=== PATIENT | female | born 1960 | race Caucasian/White ===

== ENCOUNTER 2016-07-24 18:38 | Emergency (ER) | payer BC, MEDICARE ==
[2016-07-24 18:38] VITALS: O2SAT 100
[2016-07-24 18:51] VITALS: TEMP 97.3
[2016-07-24] MEDS ORDERED: HYDROMORPHONE HCL 2 MG/ML 1 ML SOL IM ONE (19:28)
[2016-07-24] MEDS ORDERED: PROMETHAZINE HYDROCHLORIDE 25 MG/ML SOL IM ONE (19:30)
[2016-07-24] MEDS ORDERED: HYDROMORPHONE HCL 2 MG/ML 1 ML SOL ONE (19:30)
[2016-07-24] MEDS ORDERED: PROMETHAZINE HYDROCHLORIDE 25 MG/ML SOL ONE (19:35)
[2016-07-24 19:54] VITALS: BP 128/72; PULSE 76; RESP 14
== END 2016-07-24 19:54 | disposition home or self-care (01) ==
LOC: ED 18:38
DX: R51 Headache (principal)
CPT/HCPCS: 99283 ×2; J1170; J2550; 96372

== ENCOUNTER 2016-09-16 21:22 | Emergency (ER) | payer BC, MEDICARE ==
[2016-09-16 21:35] VITALS: RESP 14; TEMP 97
[2016-09-16] MEDS ORDERED: APAP/HYDROCODONE 325/5 TAB PO ONE ×2 (21:39→22:11)
[2016-09-16] MEDS ORDERED: SUMATRIPTAN SUCCINATE 6 MG/0.5 ML SOL SC ONE ×2 (21:39→21:42)
[2016-09-16] MEDS ORDERED: ONDANSETRON 4 MG ODT BU ONE (21:39)
[2016-09-16] MEDS ORDERED: ONDANSETRON 4 MG ODT ONE (21:42)
[2016-09-16] MEDS ORDERED: APAP/HYDROCODONE 325/5 TAB ONE ×2 (21:42→22:13)
[2016-09-16 23:05] VITALS: O2SAT 97
[2016-09-16 23:06] VITALS: BP 129/79; PULSE 82
== END 2016-09-16 23:01 | disposition home or self-care (01) ==
LOC: ED 21:22
DX: G43.909 Migraine, unspecified, not intractable, without status migrainosus (principal)
CPT/HCPCS: 99284 ×2; J3030

== ENCOUNTER 2016-11-12 22:30 | Emergency (ER) | payer BC, MEDICARE ==
[2016-11-12 22:49] VITALS: RESP 16; TEMP 96.4
[2016-11-12] MEDS ORDERED: SUMATRIPTAN SUCCINATE 6 MG/0.5 ML SOL SC PRN (22:53)
[2016-11-12] MEDS ORDERED: PROCHLORPERAZINE MALEATE 5 MG TAB PO ONE (22:53)
[2016-11-12] MEDS ORDERED: SUMATRIPTAN SUCCINATE 6 MG/0.5 ML SOL SC ONE (23:05)
[2016-11-12] MEDS ORDERED: PROCHLORPERAZINE MALEATE 5 MG TAB ONE (23:06)
[2016-11-12] MEDS ORDERED: APAP/HYDROCODONE 325/5 TAB PO ONE (23:50)
[2016-11-13] MEDS ORDERED: APAP/HYDROCODONE 325/5 TAB ONE (00:31)
[2016-11-13 01:15] VITALS: BP 129/61; PULSE 74; O2SAT 96
== END 2016-11-13 00:39 | disposition home or self-care (01) ==
LOC: ED 22:30
DX: G43.001 Migraine without aura, not intractable, with status migrainosus (principal)
CPT/HCPCS: 99284 ×2; J3030; Q0164; 96372; 99283

== ENCOUNTER 2016-11-14 19:28 | Emergency (ER) | payer BC, MEDICARE ==
[2016-11-14] MEDS ORDERED: HYDROMORPHONE HCL 2 MG/ML SOL IM ONE (20:04)
[2016-11-14] MEDS ORDERED: HYDROMORPHONE HCL 2 MG/ML SOL ONE (20:11)
[2016-11-14 20:27] VITALS: RESP 12; TEMP 97.7
[2016-11-14 20:56] VITALS: BP 162/97; PULSE 94; O2SAT 98
== END 2016-11-14 20:50 | disposition home or self-care (01) ==
LOC: ED 19:28
DX: R51 Headache (principal)
CPT/HCPCS: 99283 ×2; J1170; 96372

== ENCOUNTER 2016-11-17 18:51 | Emergency (ER) | payer BC, MEDICARE ==
[2016-11-17] MEDS ORDERED: HYDROMORPHONE HCL 2 MG/ML SOL IM ONE ×2 (19:35→20:15)
[2016-11-17] MEDS ORDERED: PROMETHAZINE HYDROCHLORIDE 25 MG/ML SOL IM ONE (19:35)
[2016-11-17 19:39] VITALS: TEMP 98.7
[2016-11-17] MEDS ORDERED: HYDROMORPHONE 1 MG/ML SYRINGE ONE ×2 (19:41→20:18)
[2016-11-17] MEDS ORDERED: PROMETHAZINE HYDROCHLORIDE 25 MG/ML SOL ONE (19:41)
[2016-11-17 20:30] VITALS: BP 161/86; PULSE 80; RESP 14; O2SAT 95
== END 2016-11-17 20:42 | disposition home or self-care (01) ==
LOC: ED 18:51
DX: G43.001 Migraine without aura, not intractable, with status migrainosus (principal)
CPT/HCPCS: 99283 ×2; J1170 ×2; J2550; 96372

== ENCOUNTER 2016-12-10 15:51 | Emergency (ER) | payer BC, MEDICARE ==
[2016-12-10 16:17] VITALS: TEMP 96.6
[2016-12-10] MEDS ORDERED: PROCHLORPERAZINE EDISYLATE 5 MG/ML SOL IV ONE (16:24)
[2016-12-10] MEDS ORDERED: HYDROMORPHONE HCL 2 MG/ML SOL IV ONE (16:24)
[2016-12-10] MEDS ORDERED: HYDROMORPHONE HCL 2 MG/ML SOL IM ONE (16:26)
[2016-12-10] MEDS ORDERED: PROCHLORPERAZINE EDISYLATE 5 MG/ML SOL IM ONE (16:26)
[2016-12-10] MEDS ORDERED: HYDROMORPHONE HCL 2 MG/ML SOL ONE (16:28)
[2016-12-10] MEDS ORDERED: PROCHLORPERAZINE EDISYLATE 5 MG/ML SOL ONE (16:29)
[2016-12-10 16:55] VITALS: BP 134/84; PULSE 88; RESP 12; O2SAT 99
== END 2016-12-10 17:02 | disposition home or self-care (01) ==
LOC: ED 15:51
DX: G43.009 Migraine without aura, not intractable, without status migrainosus (principal)
CPT/HCPCS: 99283 ×2; J0780; J1170

== ENCOUNTER 2016-12-11 20:14 | Emergency (ER) | payer BC, MEDICARE ==
[2016-12-11 20:42] VITALS: TEMP 97.6
[2016-12-11] MEDS ORDERED: HYDROMORPHONE HCL 2 MG/ML SOL IV ONE (20:45)
[2016-12-11] MEDS ORDERED: PROCHLORPERAZINE EDISYLATE 5 MG/ML SOL IV ONE (20:46)
[2016-12-11] MEDS ORDERED: PROCHLORPERAZINE EDISYLATE 5 MG/ML SOL ONE (20:58)
[2016-12-11] MEDS ORDERED: HYDROMORPHONE HCL 2 MG/ML SOL ONE (20:58)
[2016-12-11 21:36] VITALS: BP 129/81; PULSE 83; RESP 14; O2SAT 91
== END 2016-12-11 21:52 | disposition home or self-care (01) ==
LOC: ED 20:14
DX: G43.009 Migraine without aura, not intractable, without status migrainosus (principal); M54.9 Dorsalgia, unspecified
CPT/HCPCS: 99283 ×2; J0780; J1170; 96374; 96375

== ENCOUNTER 2016-12-13 21:10 | Emergency (ER) | payer BC, MEDICARE ==
[2016-12-13 21:31] VITALS: RESP 16; TEMP 97.8; O2SAT 98
[2016-12-13] MEDS ORDERED: PROMETHAZINE HYDROCHLORIDE 25 MG/ML SOL IM ONE (21:50)
[2016-12-13] MEDS ORDERED: HYDROMORPHONE HCL 2 MG/ML SOL IM ONE (21:50)
[2016-12-13] MEDS ORDERED: PROMETHAZINE HYDROCHLORIDE 25 MG/ML SOL ONE (21:54)
[2016-12-13] MEDS ORDERED: HYDROMORPHONE HCL 2 MG/ML SOL ONE (21:54)
[2016-12-13 22:25] VITALS: BP 130/87; PULSE 88
== END 2016-12-13 22:24 | disposition home or self-care (01) ==
LOC: ED 21:10
DX: G43.009 Migraine without aura, not intractable, without status migrainosus (principal)
CPT/HCPCS: 99283 ×2; J1170; J2550; 96372

== ENCOUNTER 2016-12-16 18:43 | Emergency (ER) | payer BC, MEDICARE ==
[2016-12-16] MEDS ORDERED: HYDROMORPHONE HCL 2 MG/ML SOL IM ONE (19:09)
[2016-12-16] MEDS ORDERED: PROMETHAZINE HYDROCHLORIDE 25 MG/ML SOL IM ONE (19:09)
[2016-12-16] MEDS ORDERED: HYDROMORPHONE HCL 2 MG/ML SOL ONE (19:13)
[2016-12-16] MEDS ORDERED: PROMETHAZINE HYDROCHLORIDE 25 MG/ML SOL ONE (19:13)
[2016-12-16 19:27] VITALS: RESP 18; TEMP 97.1
[2016-12-17 02:26] VITALS: BP 129/65; PULSE 72; O2SAT 100
== END 2016-12-16 19:44 | disposition home or self-care (01) ==
LOC: ED 18:43
DX: G43.909 Migraine, unspecified, not intractable, without status migrainosus (principal)
CPT/HCPCS: 99283 ×2; J1170; J2550; 96372

== ENCOUNTER 2016-12-18 17:57 | Emergency (ER) | payer BC, MEDICARE ==
[2016-12-18 18:44] VITALS: BP 150/93; PULSE 87; RESP 18; TEMP 98.1; O2SAT 99
== END 2016-12-18 19:05 | disposition home or self-care (01) ==
LOC: ED 17:57
DX: M54.5 Low back pain (principal)
CPT/HCPCS: 99282

== ENCOUNTER 2016-12-23 17:16 | Emergency (ER) | payer BC, MEDICARE ==
[2016-12-23 17:38] VITALS: RESP 18; TEMP 97.2; O2SAT 100
[2016-12-23] MEDS ORDERED: DIPHENHYDRAMINE 50 MG/ML SOL IV ONE (17:43)
[2016-12-23] MEDS ORDERED: PROCHLORPERAZINE EDISYLATE 5 MG/ML SOL IV ONE (17:43)
[2016-12-23] MEDS ORDERED: SODIUM CHLORIDE 0.9% 1000ML 1,000 ML IV ONE (17:44)
[2016-12-23] MEDS ORDERED: PROCHLORPERAZINE EDISYLATE 5 MG/ML SOL ONE (17:57)
[2016-12-23] MEDS ORDERED: DIPHENHYDRAMINE 50 MG/ML SOL ONE (17:57)
[2016-12-23] MEDS ORDERED: SODIUM CHLORIDE 0.9% FLUSH 10 ML SOL IV PRN (18:20)
[2016-12-23] MEDS ORDERED: TRAMADOL HYDROCHLORIDE 50 MG TAB PO ONE (18:39)
[2016-12-23] MEDS ORDERED: TRAMADOL HYDROCHLORIDE 50 MG TAB ONE (19:11)
[2016-12-23 19:38] VITALS: BP 150/80; PULSE 75
== END 2016-12-23 19:38 | disposition home or self-care (01) ==
LOC: ED 17:16
DX: G43.009 Migraine without aura, not intractable, without status migrainosus (principal)
CPT/HCPCS: 99285 ×2; J0780; J1200; 96365; 96374; 96375; 99283

== ENCOUNTER 2016-12-30 22:06 | Emergency (ER) | payer BC, MEDICARE ==
[2016-12-30] MEDS ORDERED: TRAMADOL HYDROCHLORIDE 50 MG TAB PO ONE (22:30)
[2016-12-30] MEDS ORDERED: PROMETHAZINE HYDROCHLORIDE 25 MG/ML SOL IM ONE (22:30)
[2016-12-30] MEDS ORDERED: TRAMADOL HYDROCHLORIDE 50 MG TAB ONE (22:31)
[2016-12-30] MEDS ORDERED: PROMETHAZINE HYDROCHLORIDE 25 MG/ML SOL ONE (22:32)
[2016-12-30 22:48] VITALS: RESP 18; TEMP 97; O2SAT 99
[2016-12-30 23:29] VITALS: BP 123/68; PULSE 76
== END 2016-12-30 23:30 | disposition home or self-care (01) ==
LOC: ED 22:06
DX: G43.501 Persistent migraine aura without cerebral infarction, not intractable, with status migrainosus (principal)
CPT/HCPCS: 99283 ×2; J2550; 96372

== ENCOUNTER 2017-01-30 20:17 | Emergency (ER) | payer BC, MEDICARE ==
[2017-01-30 20:18] VITALS: O2SAT 99
[2017-01-30] MEDS ORDERED: PROMETHAZINE HYDROCHLORIDE 25 MG/ML SOL IM ONE (21:10)
[2017-01-30] MEDS ORDERED: PROMETHAZINE HYDROCHLORIDE 25 MG/ML SOL ONE (21:14)
[2017-01-30 21:17] VITALS: BP 162/96; PULSE 102; RESP 16; TEMP 96.9
== END 2017-01-30 20:28 | disposition home or self-care (01) ==
LOC: ED 20:17
DX: M54.5 Low back pain (principal); W07.XXXA Fall from chair, initial encounter
CPT/HCPCS: 99282 ×2; J2550; 96372

== ENCOUNTER 2017-03-17 18:49 | Emergency (ER) | payer BC, MEDICARE ==
[2017-03-17 19:16] VITALS: BP 127/76; PULSE 91; RESP 16; TEMP 97.9; O2SAT 100
== END 2017-03-17 19:37 | disposition left against medical advice (07) ==
LOC: ED 18:49
DX: G43.509 Persistent migraine aura without cerebral infarction, not intractable, without status migrainosus (principal)
CPT/HCPCS: 99282

== ENCOUNTER 2017-04-14 17:39 | Emergency (ER) | payer BC, MEDICARE ==
[2017-04-14] MEDS ORDERED: HYDROMORPHONE HCL 2 MG/ML SOL IM ONE ×2 (19:11→20:16)
[2017-04-14] MEDS ORDERED: ONDANSETRON 4 MG ODT BU ONE (19:11)
[2017-04-14 19:13] VITALS: RESP 18; TEMP 97.7
[2017-04-14] MEDS ORDERED: HYDROMORPHONE HCL 2 MG/ML SOL ONE ×2 (19:15→20:17)
[2017-04-14] MEDS ORDERED: ONDANSETRON 4 MG ODT ONE (19:15)
[2017-04-14 20:25] VITALS: BP 151/91; PULSE 85; O2SAT 98
== END 2017-04-14 21:03 | disposition home or self-care (01) ==
LOC: ED 17:39
DX: G43.019 Migraine without aura, intractable, without status migrainosus (principal)
CPT/HCPCS: 99284; J1170

== ENCOUNTER 2017-04-17 19:03 | Emergency (ER) | payer BC, MEDICARE ==
[2017-04-17 19:33] VITALS: BP 185/98; PULSE 88; RESP 18; TEMP 98.1; O2SAT 99
[2017-04-17] MEDS ORDERED: PROCHLORPERAZINE MALEATE 5 MG TAB PO ONE (19:47)
[2017-04-17] MEDS ORDERED: IBUPROFEN 600 MG TAB PO ONE (19:47)
[2017-04-17] MEDS ORDERED: IBUPROFEN 600 MG TAB ONE (19:49)
[2017-04-17] MEDS ORDERED: PROCHLORPERAZINE MALEATE 5 MG TAB ONE (19:49)
== END 2017-04-17 19:56 | disposition home or self-care (01) ==
LOC: ED 19:03
DX: G43.909 Migraine, unspecified, not intractable, without status migrainosus (principal)
CPT/HCPCS: 99282 ×2; Q0164

== ENCOUNTER 2017-05-11 13:51 | Emergency (ER) | payer BC, MEDICARE ==
[2017-05-11 14:23] VITALS: RESP 16; TEMP 97.8
[2017-05-11] MEDS ORDERED: HYDROMORPHONE HCL 2 MG/ML SOL IM ONE ×2 (14:31→16:37)
[2017-05-11] MEDS ORDERED: HYDROXYZINE HYDROCHLORIDE 25 MG/ML SOL IM ONE (14:32)
[2017-05-11] MEDS ORDERED: HYDROMORPHONE HCL 2 MG/ML SOL ONE ×2 (14:37→16:42)
[2017-05-11] MEDS ORDERED: PROMETHAZINE HYDROCHLORIDE 25 MG/ML SOL IM ONE (15:06)
[2017-05-11] MEDS ORDERED: PROMETHAZINE HYDROCHLORIDE 25 MG/ML SOL ONE (15:11)
[2017-05-11 16:56] VITALS: BP 123/71; PULSE 86; O2SAT 96
== END 2017-05-11 16:52 | disposition home or self-care (01) ==
LOC: ED 13:51
DX: G43.009 Migraine without aura, not intractable, without status migrainosus (principal); G97.1 Other reaction to spinal and lumbar puncture
CPT/HCPCS: 96372; 99283; 99285; J1170; J2550

== ENCOUNTER 2017-05-15 13:20 | Emergency (ER) | payer BC, MEDICARE ==
[2017-05-15 16:03] VITALS: BP 134/78; PULSE 82; RESP 16; TEMP 97.4; O2SAT 100
== END 2017-05-15 14:35 | disposition home or self-care (01) ==
LOC: ED 13:20
DX: G89.4 Chronic pain syndrome (principal); R51 Headache
CPT/HCPCS: 99282

== ENCOUNTER 2017-06-16 12:45 | Emergency (ER) | payer BC, MEDICARE ==
[2017-06-16 12:45] VITALS: O2SAT 100
[2017-06-16 13:00] VITALS: RESP 16; TEMP 98.2
[2017-06-16] MEDS ORDERED: PROCHLORPERAZINE EDISYLATE 5 MG/ML SOL IV ONE (13:18)
[2017-06-16] MEDS ORDERED: DIPHENHYDRAMINE 50 MG/ML SOL IV ONE (13:18)
[2017-06-16] MEDS ORDERED: TRAMADOL HYDROCHLORIDE 50 MG TAB PO ONE (13:18)
[2017-06-16] MEDS ORDERED: TRAMADOL HYDROCHLORIDE 50 MG TAB ONE (13:20)
[2017-06-16] MEDS ORDERED: DIPHENHYDRAMINE 50 MG/ML SOL ONE (13:20)
[2017-06-16] MEDS ORDERED: PROCHLORPERAZINE EDISYLATE 5 MG/ML SOL ONE (13:21)
[2017-06-16] MEDS ORDERED: SODIUM CHLORIDE 0.9% 1000ML 1,000 ML IV SCH (13:30)
[2017-06-16] MEDS: SODIUM CHLORIDE 0.9% FLUSH 10 ML SOL IV PRN ×2 (13:30→13:48)
[2017-06-16] MEDS ORDERED: IBUPROFEN 600 MG TAB PO ONE (14:12)
[2017-06-16] MEDS ORDERED: IBUPROFEN 600 MG TAB ONE (14:14)
[2017-06-16 14:31] VITALS: BP 151/94; PULSE 81
== END 2017-06-16 14:26 | disposition home or self-care (01) ==
LOC: ED 12:45
DX: G43.009 Migraine without aura, not intractable, without status migrainosus (principal)
CPT/HCPCS: 96365; 96374; 96375; 99282; 99283; J0780; J1200

== ENCOUNTER 2017-07-04 12:11 | Emergency (ER) | payer BC, MEDICARE ==
[2017-07-04] MEDS ORDERED: APAP/HYDROCODONE 325/5 TAB PO ONE (13:12)
[2017-07-04 13:24] VITALS: RESP 18; TEMP 98.4
[2017-07-04] MEDS ORDERED: APAP/HYDROCODONE 325/5 TAB ONE (13:30)
[2017-07-04 14:41] VITALS: O2SAT 96
[2017-07-04 14:43] VITALS: BP 170/100; PULSE 78
== END 2017-07-04 14:04 | disposition home or self-care (01) ==
LOC: ED 12:11
DX: G43.909 Migraine, unspecified, not intractable, without status migrainosus (principal); R11.0 Nausea; H53.142 Visual discomfort, left eye
CPT/HCPCS: 99283

== ENCOUNTER 2017-09-02 21:46 | Emergency (ER) | payer BC, MEDICARE ==
[2017-09-02] MEDS ORDERED: ONDANSETRON HCL 4 MG/2 ML SOL IV ONE (22:05)
[2017-09-02] MEDS ORDERED: HYDROMORPHONE HCL 2 MG/ML SOL IV ONE (22:05)
[2017-09-02] MEDS ORDERED: ONDANSETRON HCL 4 MG/2 ML SOL ONE (22:15)
[2017-09-02] MEDS ORDERED: HYDROMORPHONE HCL 2 MG/ML SOL ONE (22:15)
[2017-09-02] MEDS ORDERED: SODIUM CHLORIDE 0.9% FLUSH 10 ML SOL IV PRN (22:26)
[2017-09-02 22:41] VITALS: TEMP 96.6
[2017-09-02 23:03] VITALS: BP 144/74; PULSE 69; RESP 16; O2SAT 98
== END 2017-09-02 22:48 | disposition home or self-care (01) ==
LOC: ED 21:46
DX: G43.509 Persistent migraine aura without cerebral infarction, not intractable, without status migrainosus (principal)
CPT/HCPCS: 96374; 96375; 99284; J1170; J2405

== ENCOUNTER 2017-09-03 10:45 | Emergency (ER) | payer BC, MEDICARE ==
[2017-09-03 11:03] VITALS: BP 134/74; PULSE 74; RESP 16; TEMP 97.1; O2SAT 100
[2017-09-03] MEDS ORDERED: SODIUM CHLORIDE 0.9% 1000ML 1,000 ML IV ONE (11:12)
[2017-09-03] MEDS ORDERED: PROCHLORPERAZINE EDISYLATE 5 MG/ML SOL IV ONE (11:12)
== END 2017-09-03 11:22 | disposition left against medical advice (07) ==
LOC: ED 10:45
DX: R51 Headache (principal)
CPT/HCPCS: 99282

== ENCOUNTER 2017-09-03 18:02 | Emergency (ER) | payer BC, MEDICARE ==
[2017-09-03] MEDS ORDERED: SODIUM CHLORIDE 0.9% 1000ML 1,000 ML IV ONE (18:17)
[2017-09-03] MEDS ORDERED: PROCHLORPERAZINE EDISYLATE 5 MG/ML SOL IV ONE (18:17)
[2017-09-03 18:23] VITALS: RESP 20; TEMP 98
[2017-09-03] MEDS ORDERED: PROCHLORPERAZINE EDISYLATE 5 MG/ML SOL ONE (18:29)
[2017-09-03 18:34] LABS: BASOPHILS % (AUTO) 1 % (0-3); EOSINOPHILS % (AUTO) 5 % (0-9); HEMATOCRIT 36 % (35-47); MEAN CORPUSCULAR HGB CONC 32.3 gm/dl (32.0-36.0); MEAN CORPUSCULAR VOLUME 98 fL (81-99); MONOCYTES % (AUTO) 7.6 % (0-12); NEUTROPHILS % (AUTO) 47.6 % (37-80)
[2017-09-03 18:47] LABS: ALBUMIN 3.4 gm/dl (3.4-5.0); ALT 8 IU/L (14-63); CALCIUM 8.4 mg/dl (8.5-10.1); GLOM FILT RATE 76 mL/min (>60); POTASSIUM 3.8 mMol/L (3.5-5.1); SODIUM 139 mMol/L (136-145)
[2017-09-03 20:02] VITALS: BP 123/62; PULSE 71; O2SAT 95
== END 2017-09-03 19:55 | disposition home or self-care (01) ==
LOC: ED 18:02
DX: G43.019 Migraine without aura, intractable, without status migrainosus (principal)
CPT/HCPCS: 70450; 80053; 80307; 85025; 96365; 96374; 99282; 99284; J0780

== ENCOUNTER 2017-09-04 20:34 | Emergency (ER) | payer BC, MEDICARE ==
[2017-09-04 21:06] VITALS: RESP 16
[2017-09-04] MEDS ORDERED: HYDROMORPHONE HCL 2 MG/ML SOL IM ONE (21:40)
[2017-09-04] MEDS ORDERED: PROMETHAZINE HYDROCHLORIDE 25 MG/ML SOL IM ONE (21:41)
[2017-09-04] MEDS ORDERED: HYDROMORPHONE HCL 2 MG/ML SOL ONE (21:49)
[2017-09-04] MEDS ORDERED: PROMETHAZINE HYDROCHLORIDE 25 MG/ML SOL ONE (21:49)
[2017-09-04 22:04] VITALS: TEMP 98.5
[2017-09-04 22:43] VITALS: BP 153/88; PULSE 68; O2SAT 94
== END 2017-09-04 22:55 | disposition home or self-care (01) ==
LOC: ED 20:34
DX: R51 Headache (principal)
CPT/HCPCS: 96372; 99283; 99284; J1170; J2550

== ENCOUNTER 2017-09-07 17:39 | Emergency (ER) | payer BC, MEDICARE ==
[2017-09-07 17:57] VITALS: TEMP 97.6
[2017-09-07 18:23] LABS: BASOPHILS % (AUTO) 2 % (0-3); EOSINOPHILS % (AUTO) 4 % (0-9); HEMATOCRIT 45 % (35-47); MEAN CORPUSCULAR HGB CONC 33.3 gm/dl (32.0-36.0); MEAN CORPUSCULAR VOLUME 94 fL (81-99); MONOCYTES % (AUTO) 5.6 % (0-12); NEUTROPHILS % (AUTO) 56.2 % (37-80)
[2017-09-07 18:28] LABS: CALCIUM 9.2 mg/dl (8.5-10.1); POTASSIUM 3.7 mMol/L (3.5-5.1)
[2017-09-07] MEDS ORDERED: HYDROMORPHONE HCL 2 MG/ML SOL IV ONE (19:01)
[2017-09-07] MEDS ORDERED: LABETALOL HYDROCHLORIDE 5 MG/ML SOL IV ONE ×2 (19:03→19:09)
[2017-09-07] MEDS ORDERED: HYDROMORPHONE HCL 2 MG/ML SOL ONE (19:08)
[2017-09-07 20:21] VITALS: RESP 18
[2017-09-07 20:22] VITALS: BP 178/85; PULSE 77; O2SAT 97
== END 2017-09-07 20:15 | disposition home or self-care (01) ==
LOC: ED 17:39
DX: S09.8XXA Other specified injuries of head, initial encounter (principal); S16.1XXA Strain of muscle, fascia and tendon at neck level, initial encounter; S20.229A Contusion of unspecified back wall of thorax, initial encounter; S70.01XA Contusion of right hip, initial encounter; S40.011A Contusion of right shoulder, initial encounter; I10 Essential (primary) hypertension; W10.9XXA Fall (on) (from) unspecified stairs and steps, initial encounter
CPT/HCPCS: 70450; 72125; 72128; 72131; 73030; 73501; 80048; 85025; 99285; J1170; J3490

== ENCOUNTER 2017-10-06 12:56 | Emergency (ER) | payer BC, MEDICARE ==
[2017-10-06 13:03] VITALS: RESP 16; TEMP 97.6
[2017-10-06] MEDS ORDERED: HYDROMORPHONE HCL 2 MG/ML SOL IM ONE (13:48)
[2017-10-06] MEDS ORDERED: HYDROMORPHONE HCL 2 MG/ML SOL ONE (13:52)
[2017-10-06 14:43] VITALS: BP 144/114; PULSE 64; O2SAT 94
== END 2017-10-06 14:44 | disposition home or self-care (01) ==
LOC: ED 12:56
DX: M54.41 Lumbago with sciatica, right side (principal); G89.29 Other chronic pain
CPT/HCPCS: 99283; J1170

== ENCOUNTER 2017-10-07 21:15 | Emergency (ER) | payer BC, MEDICARE ==
[2017-10-07] MEDS ORDERED: HYDROMORPHONE HCL 2 MG/ML SOL IM ONE (21:26)
[2017-10-07 21:31] VITALS: BP 185/108; PULSE 78; RESP 18; TEMP 96.7; O2SAT 98
[2017-10-07] MEDS ORDERED: HYDROMORPHONE HCL 2 MG/ML SOL ONE (21:33)
== END 2017-10-07 22:08 | disposition home or self-care (01) ==
LOC: ED 21:15
DX: M54.42 Lumbago with sciatica, left side (principal)
CPT/HCPCS: 99282; J1170

== ENCOUNTER 2017-12-20 13:04 | Emergency (ER) | payer BC, MEDICARE ==
[2017-12-20 13:27] VITALS: BP 131/58; PULSE 86; RESP 20; TEMP 97.8; O2SAT 98
[2017-12-20] MEDS ORDERED: PROMETHAZINE HYDROCHLORIDE 25 MG/ML SOL IM ONE (13:49)
[2017-12-20] MEDS ORDERED: HYDROMORPHONE HCL 2 MG/ML SOL IM ONE (13:50)
[2017-12-20] MEDS ORDERED: PROMETHAZINE HYDROCHLORIDE 25 MG/ML SOL ONE (13:51)
[2017-12-20] MEDS ORDERED: HYDROMORPHONE HCL 2 MG/ML SOL ONE (13:53)
== END 2017-12-20 14:13 | disposition home or self-care (01) ==
LOC: ED 13:04
DX: G43.519 Persistent migraine aura without cerebral infarction, intractable, without status migrainosus (principal)
CPT/HCPCS: 96372; 99283; J1170; J2550

== ENCOUNTER 2017-12-21 14:01 | Emergency (ER) | payer BC, MEDICARE ==
[2017-12-21 14:13] VITALS: BP 149/80; PULSE 79; RESP 18; TEMP 97.9; O2SAT 99
[2017-12-21] MEDS ORDERED: APAP/OXYCODONE 325/5 TAB PO ONE (14:41)
[2017-12-21] MEDS ORDERED: PROMETHAZINE HYDROCHLORIDE 25 MG/ML SOL IM ONE (14:41)
[2017-12-21] MEDS ORDERED: IBUPROFEN 400 MG TAB PO ONE (14:41)
[2017-12-21] MEDS ORDERED: IBUPROFEN 400 MG TAB ONE (14:44)
[2017-12-21] MEDS ORDERED: APAP/OXYCODONE 325/5 TAB ONE (14:45)
[2017-12-21] MEDS ORDERED: PROMETHAZINE HYDROCHLORIDE 25 MG/ML SOL ONE (14:45)
== END 2017-12-21 15:10 | disposition home or self-care (01) ==
LOC: ED 14:01
DX: G43.119 Migraine with aura, intractable, without status migrainosus (principal)
CPT/HCPCS: 96372; 99283; J2550; A9270-GY

== ENCOUNTER 2018-02-22 20:50 | Emergency (ER) | payer MEDICARE, BC ==
[2018-02-22 21:14] VITALS: RESP 16; TEMP 97.2
[2018-02-22] MEDS ORDERED: SUMATRIPTAN SUCCINATE 6 MG/0.5 ML SOL SC ONE ×2 (21:24→21:29)
[2018-02-22] MEDS ORDERED: CYCLOBENZAPRINE HYDROCHLORID 5 MG TAB PO STA (21:24)
[2018-02-22] MEDS: LORAZEPAM 0.5 MG TAB PO ONE ×2 (21:24→22:06)
[2018-02-22] MEDS: CYCLOBENZAPRINE 10 MG TAB PO ONE ×2 (21:24→22:06)
[2018-02-22] MEDS ORDERED: LORAZEPAM 0.5 MG TAB ONE ×2 (21:29→22:04)
[2018-02-22] MEDS ORDERED: CYCLOBENZAPRINE 10 MG TAB ONE ×2 (21:29→22:04)
[2018-02-22] MEDS ORDERED: HYDROMORPHONE HCL 2 MG/ML SOL IM ONE (21:36)
[2018-02-22] MEDS ORDERED: HYDROMORPHONE 1 MG/ML SYRINGE ONE (21:39)
[2018-02-22 22:20] VITALS: BP 135/76; PULSE 76; O2SAT 98
== END 2018-02-22 22:17 | disposition home or self-care (01) | DRG 103 ==
LOC: ED 20:50
DX: G44.221 Chronic tension-type headache, intractable (principal)
CPT/HCPCS: 96372; 99282; 99283; J3030; A9270-GY; J1170

== ENCOUNTER 2018-04-16 18:55 | Emergency (ER) | payer MEDICARE, BC ==
[2018-04-16 18:55] VITALS: O2SAT 97
[2018-04-16 19:26] VITALS: RESP 20; TEMP 97.8
[2018-04-16] MEDS ORDERED: PROCHLORPERAZINE EDISYLATE 5 MG/ML SOL IV ONE (19:50)
[2018-04-16] MEDS ORDERED: HYDROMORPHONE HCL 2 MG/ML SOL IV ONE (19:51)
[2018-04-16] MEDS ORDERED: PROCHLORPERAZINE EDISYLATE 5 MG/ML SOL ONE (19:55)
[2018-04-16] MEDS ORDERED: SODIUM CHLORIDE 0.9% 1000ML 1,000 ML IV SCH (20:00)
[2018-04-16] MEDS ORDERED: HYDROMORPHONE 1 MG/ML SYRINGE IV ONE (20:05)
[2018-04-16] MEDS ORDERED: HYDROMORPHONE 1 MG/ML SYRINGE ONE (20:06)
[2018-04-16 22:53] VITALS: BP 152/76; PULSE 80
== END 2018-04-16 21:14 | disposition home or self-care (01) | DRG 103 ==
LOC: ED 18:55
DX: R51 Headache (principal)
CPT/HCPCS: 96365; 96374; 96375; 99282; 99284; J0780; J1170

== ENCOUNTER 2018-05-11 20:51 | Emergency (ER) | payer MEDICARE, BC ==
[2018-05-11] MEDS ORDERED: SODIUM CHLORIDE 0.9% 1000ML 1,000 ML IV ONE (21:14)
[2018-05-11] MEDS ORDERED: HYDROMORPHONE HCL 2 MG/ML SOL IV ONE (21:15)
[2018-05-11] MEDS ORDERED: PROCHLORPERAZINE EDISYLATE 5 MG/ML SOL IV ONE (21:15)
[2018-05-11] MEDS ORDERED: PROMETHAZINE HYDROCHLORIDE 25 MG/ML SOL IM ONE (21:37)
[2018-05-11] MEDS ORDERED: PROMETHAZINE HYDROCHLORIDE 25 MG/ML SOL ONE (21:44)
[2018-05-11] MEDS ORDERED: HYDROMORPHONE 1 MG/ML SYRINGE ONE (21:45)
[2018-05-12 00:56] VITALS: RESP 18; TEMP 97.1
[2018-05-12 01:04] VITALS: BP 148/82; PULSE 72; O2SAT 97
== END 2018-05-11 23:28 | disposition home or self-care (01) | DRG 103 ==
LOC: ED 20:51
DX: R51 Headache (principal)
CPT/HCPCS: 96372; 99282; 99283; J2550; J1170

== ENCOUNTER 2018-07-04 13:24 | Emergency (ER) | payer BC, MEDICARE ==
[2018-07-04 13:47] VITALS: RESP 18; TEMP 97.7
[2018-07-04] MEDS ORDERED: PROMETHAZINE HYDROCHLORIDE 25 MG/ML SOL IM ONE (14:56)
[2018-07-04] MEDS ORDERED: HYDROMORPHONE HCL 2 MG/ML SOL IM ONE (14:56)
[2018-07-04] MEDS ORDERED: PROMETHAZINE HYDROCHLORIDE 25 MG/ML SOL ONE (15:05)
[2018-07-04] MEDS ORDERED: HYDROMORPHONE 1 MG/ML SYRINGE ONE (15:05)
[2018-07-04 16:41] VITALS: BP 129/62; PULSE 84; O2SAT 93
== END 2018-07-04 16:30 | disposition home or self-care (01) | DRG 103 ==
LOC: ED 13:24
DX: G43.019 Migraine without aura, intractable, without status migrainosus (principal)
CPT/HCPCS: 96372; 99282; 99284; J2550; J1170

== ENCOUNTER 2018-07-07 20:08 | Emergency (ER) | payer BC | END 2018-07-07 21:30 | disposition home or self-care (01) | LOC: ED 20:08 ==

== ENCOUNTER 2018-07-17 17:58 | Emergency (ER) | payer BC, MEDICARE ==
[2018-07-17 18:15] VITALS: BP 149/82; PULSE 80; RESP 18; TEMP 97.9; O2SAT 94
[2018-07-17] MEDS ORDERED: DIPHENHYDRAMINE 50 MG/ML SOL IV ONE (18:18)
[2018-07-17] MEDS ORDERED: PROCHLORPERAZINE EDISYLATE 5 MG/ML SOL IV ONE (18:19)
[2018-07-17] MEDS ORDERED: SODIUM CHLORIDE 0.9% 1000ML 1,000 ML IV ONE (18:19)
[2018-07-17] MEDS ORDERED: PROMETHAZINE HYDROCHLORIDE 25 MG/ML SOL IM ONE (18:26)
[2018-07-17] MEDS ORDERED: HYDROMORPHONE HCL 2 MG/ML SOL IM ONE ×2 (18:27→18:46)
[2018-07-17] MEDS ORDERED: HYDROMORPHONE 1 MG/ML SYRINGE ONE ×2 (18:28→18:47)
[2018-07-17] MEDS ORDERED: PROMETHAZINE HYDROCHLORIDE 25 MG/ML SOL ONE (18:28)
== END 2018-07-17 19:08 | disposition home or self-care (01) | DRG 103 ==
LOC: ED 17:58
DX: G43.909 Migraine, unspecified, not intractable, without status migrainosus (principal)
CPT/HCPCS: 96372; 99282; 99283; J2550; J1170

== ENCOUNTER 2018-07-19 15:39 | Emergency (ER) | payer BC ==
[2018-07-19 15:54] VITALS: TEMP 97.7
[2018-07-19] MEDS: SODIUM CHLORIDE 0.9% FLUSH 10 ML SOL IV PRN ×2 (16:15→16:52)
[2018-07-19] MEDS ORDERED: DIPHENHYDRAMINE 50 MG/ML SOL IV ONE (16:17)
[2018-07-19] MEDS ORDERED: SODIUM CHLORIDE 0.9% 1000ML 1,000 ML IV ONE (16:18)
[2018-07-19] MEDS ORDERED: PROCHLORPERAZINE EDISYLATE 5 MG/ML SOL IV ONE (16:18)
[2018-07-19] MEDS ORDERED: PROCHLORPERAZINE EDISYLATE 5 MG/ML SOL ONE (16:21)
[2018-07-19] MEDS ORDERED: DIPHENHYDRAMINE 50 MG/ML SOL ONE (16:21)
[2018-07-19] MEDS ORDERED: SOLUMEDROL 125 MG/2 ML 125 MG/2 ML PDS IV ONE (16:47)
[2018-07-19] MEDS ORDERED: HYDROMORPHONE 1 MG/ML SYRINGE IV PRN (16:48)
[2018-07-19] MEDS ORDERED: SOLUMEDROL 125 MG/2 ML 125 MG/2 ML PDS ONE (16:49)
[2018-07-19] MEDS ORDERED: HYDROMORPHONE 1 MG/ML SYRINGE ONE (16:50)
[2018-07-19 16:58] VITALS: PULSE 76; RESP 18
[2018-07-19 17:25] VITALS: BP 147/77; O2SAT 97
== END 2018-07-19 17:22 | disposition home or self-care (01) | DRG 103 ==
LOC: ED 15:39
DX: G43.019 Migraine without aura, intractable, without status migrainosus (principal)
CPT/HCPCS: 96365; 96374; 96375; 99282; 99285; J0780; J1200; J2930; J1170

== ENCOUNTER 2018-08-25 19:27 | Emergency (ER) | payer BC, MEDICARE ==
[2018-08-25] MEDS ORDERED: SODIUM CHLORIDE 0.9% 1000ML 1,000 ML IV ONE (19:45)
[2018-08-25] MEDS ORDERED: DIPHENHYDRAMINE 50 MG/ML SOL IV ONE (19:45)
[2018-08-25] MEDS ORDERED: NAPROXEN 500 MG TAB PO PRN (19:46)
[2018-08-25] MEDS ORDERED: METOCLOPRAMIDE HYDROCHLORIDE 5 MG/ML SOL IV ONE (19:46)
[2018-08-25 19:47] VITALS: RESP 18; TEMP 96.9
[2018-08-25] MEDS ORDERED: IBUPROFEN 600 MG TAB PO ONE (19:48)
[2018-08-25] MEDS ORDERED: TRAMADOL HYDROCHLORIDE 50 MG TAB PO ONE (19:50)
[2018-08-25] MEDS ORDERED: DIPHENHYDRAMINE 50 MG/ML SOL ONE (20:22)
[2018-08-25] MEDS ORDERED: METOCLOPRAMIDE HYDROCHLORIDE 5 MG/ML SOL ONE (20:22)
[2018-08-25] MEDS ORDERED: TRAMADOL HYDROCHLORIDE 50 MG TAB ONE (20:22)
[2018-08-25] MEDS ORDERED: HYDROMORPHONE 1 MG/ML SYRINGE IV ONE (20:55)
[2018-08-25] MEDS ORDERED: HYDROMORPHONE 1 MG/ML SYRINGE ONE (20:57)
[2018-08-25 21:04] VITALS: BP 124/64; PULSE 82; O2SAT 98
[2018-08-25] MEDS ORDERED: APAP/HYDROCODONE 1 EACH TABLET PO ONE (21:05)
[2018-08-25] MEDS ORDERED: APAP/HYDROCODONE 1 EACH TABLET ONE (21:32)
== END 2018-08-25 21:45 | disposition home or self-care (01) ==
LOC: ED 19:27
DX: G43.509 Persistent migraine aura without cerebral infarction, not intractable, without status migrainosus (principal)
CPT/HCPCS: 96365; 96374; 96375; 99283; 99285; J1200; J2765; A9270-GY; J1170

== ENCOUNTER 2018-10-28 20:30 | Emergency (ER) | payer BC ==
[2018-10-28] MEDS ORDERED: PROMETHAZINE HYDROCHLORIDE 25 MG/ML SOL IV ONE (21:12)
[2018-10-28] MEDS ORDERED: SODIUM CHLORIDE 0.9% 500 ML 500 ML IV ONE (21:12)
[2018-10-28] MEDS ORDERED: HYDROMORPHONE HCL 2 MG/ML SOL IV ONE (21:12)
[2018-10-28] MEDS ORDERED: HYDROMORPHONE 1 MG/ML SYRINGE ONE (21:17)
[2018-10-28] MEDS ORDERED: PROMETHAZINE HYDROCHLORIDE 25 MG/ML SOL ONE (21:18)
[2018-10-28 21:51] VITALS: RESP 16; TEMP 97
[2018-10-28] MEDS ORDERED: HYDROMORPHONE HCL 2 MG/ML SOL IM ONE (21:57)
[2018-10-28] MEDS ORDERED: PROMETHAZINE HYDROCHLORIDE 25 MG/ML SOL IM ONE (21:57)
[2018-10-28] MEDS ORDERED: HYDROMORPHONE 1 MG/ML SYRINGE IM ONE (21:58)
[2018-10-28 23:30] VITALS: BP 102/60; PULSE 78; O2SAT 90
== END 2018-10-28 23:25 | disposition home or self-care (01) | DRG 103 ==
LOC: ED 20:30
DX: R51 Headache (principal)
CPT/HCPCS: 96372; 99283; 99285; J2550; J1170

== ENCOUNTER 2018-10-29 18:20 | Emergency (ER) | payer BC ==
[2018-10-29 18:57] VITALS: BP 174/106; PULSE 102; RESP 20; TEMP 97.8; O2SAT 100
== END 2018-10-29 19:12 | disposition left against medical advice (07) | DRG 103 ==
LOC: ED 18:20
DX: G43.509 Persistent migraine aura without cerebral infarction, not intractable, without status migrainosus (principal); H53.2 Diplopia; Z53.21 Procedure and treatment not carried out due to patient leaving prior to being seen by health care provider
CPT/HCPCS: 99282; 99283

== ENCOUNTER 2018-11-11 21:07 | Emergency (ER) | payer BC ==
[2018-11-11 21:21] VITALS: RESP 18; TEMP 97.6; O2SAT 98
[2018-11-11] MEDS ORDERED: PROMETHAZINE HYDROCHLORIDE 25 MG/ML SOL IM ONE (21:38)
[2018-11-11] MEDS ORDERED: HYDROMORPHONE HCL 2 MG/ML SOL IM ONE (21:38)
[2018-11-11] MEDS ORDERED: ONDANSETRON 4 MG ODT BU ONE (21:39)
[2018-11-11] MEDS ORDERED: ONDANSETRON 4 MG ODT ONE (21:41)
[2018-11-11] MEDS ORDERED: PROMETHAZINE HYDROCHLORIDE 25 MG/ML SOL ONE (21:41)
[2018-11-11] MEDS ORDERED: HYDROMORPHONE 1 MG/ML SYRINGE ONE (21:41)
[2018-11-11 22:40] VITALS: BP 127/64; PULSE 74
== END 2018-11-11 22:25 | disposition home or self-care (01) | DRG 103 ==
LOC: ED 21:07
DX: R51 Headache (principal); R11.0 Nausea
CPT/HCPCS: 96372; 99282; 99283; J2550; A9270-GY; J1170

== ENCOUNTER 2019-01-18 21:06 | Emergency (ER) | payer BC ==
[2019-01-18 21:30] VITALS: RESP 18; TEMP 97.2
[2019-01-18] MEDS ORDERED: ONDANSETRON 4 MG ODT BU ONE (21:37)
[2019-01-18] MEDS ORDERED: PROMETHAZINE HYDROCHLORIDE 25 MG/ML SOL IM ONE (21:38)
[2019-01-18] MEDS ORDERED: HYDROMORPHONE HCL 2 MG/ML SOL IM ONE (21:38)
[2019-01-18] MEDS ORDERED: PROMETHAZINE HYDROCHLORIDE 25 MG/ML SOL ONE (21:42)
[2019-01-18] MEDS ORDERED: HYDROMORPHONE 1 MG/ML SYRINGE ONE (21:42)
[2019-01-18] MEDS ORDERED: ONDANSETRON 4 MG ODT ONE (21:43)
[2019-01-18 22:49] VITALS: BP 160/81; PULSE 80; O2SAT 95
== END 2019-01-18 22:40 | disposition home or self-care (01) | DRG 103 ==
LOC: ED 21:06
DX: R51 Headache (principal)
CPT/HCPCS: 96372; 99282; 99283; J2550; A9270-GY; J1170

== ENCOUNTER 2019-02-19 19:03 | Emergency (ER) | payer BC | END 2019-02-19 21:27 | disposition home or self-care (01) | LOC: ED 19:03 ==

== ENCOUNTER 2019-02-20 12:03 | Emergency (ER) | payer BC | END 2019-02-20 14:28 | disposition home or self-care (01) | LOC: ED 12:03 ==